=== PATIENT | male | born 1945 | race Caucasian/White ===

== ENCOUNTER 2016-10-09 08:50 | Emergency (ER) | payer MEDICARE, MEDICAID ==
[2016-10-09] MEDS ORDERED: Albuterol/Ipratropium Neb 3 ML NEB NEB ONE (09:00)
[2016-10-09] MEDS ORDERED: METHYLPREDNISOLONE 125 MG/2 ML VIAL IV ONE (09:00)
[2016-10-09 09:01] VITALS: TEMP 99; BMI 27.0
--- NOTE | 2016-10-09 09:03 | EDPRACDOC ---
- General Information Stated Complaint: RESPIRATORY Time Seen by Provider: 10/09/16 08:59 Home Medications: Home Medications Amlodipine [Norvasc] 10 mg PO DAILY 08/31/16 Atorvastatin Calcium [Lipitor] 10 mg PO QHS 08/31/16 Clopidogrel Bisulfate [Plavix] 75 mg PO DAILY 08/31/16 Diazepam [Valium] 5 mg PO DAILY PRN 08/31/16 Ipratropium/Albuterol Sulfate [Combivent Respimat Inhal [place]] 1 puff INH QID Levothyroxine Sodium [Levo-T] 25 mcg PO DAILY 08/31/16 Metoprolol Tartrate 25 mg PO BID #60 tablet 08/31/16 Mirtazapine 7.5 mg PO QHS 08/31/16 Ranitidine [Zantac] 150 mg PO BID 08/31/16 Tamsulosin HCl 0.4 mg PO BID 08/31/16 Tramadol HCl [Ultram] 50 mg PO BID PRN 08/31/16 hydrALAZINE (Cardiovascular) [Apresoline] 10 mg PO TID 08/31/16 Azithromycin [Zithromax] 250 mg PO DAILY #6 tablet 10/09/16 Prednisone [Deltasone, Orasone] 20 mg PO DAILY #12 tab 10/09/16 Allergies/Adverse Reactions: Allergies Allergy/AdvReac Type Severity Reaction Status Date / Time amitriptyline [From Elavil] Allergy Hives* Verified 08/31/16 15:34 carbamazepine [From Tegretol] Allergy See Verified 08/31/16 15:34 Comments Penicillins Allergy Hives* Verified 08/31/16 15:34 - History of Present Illness HPI: SEVERAL DAYS A COUGH COLD CONGESTION. DIFFICULTY BREATHING WHEEZING NOT RESPONDING TO HIS COMBIVENT. FAMILY MEMBERS AT THE EXACT SAME THING. NO ALLEVIATING OR AGGRAVATING FACTORS. LOW-GRADE FEVER AT HOME. ED Past Medical History - History Reviewed Yes Nurses notes reviewed and agree except as marked - Patient Medical History Cardiac History: Reports: Hypertension, Hypercholesterolemia Respiratory History: Reports: COPD GI/ History: Reports: Gastroesophageal Reflux Psychological History: Denies: Depression Systemic History: Reports: Cancer (Skin), Diabetes - Social Medical History Smoking Status: Never smoker ETOH: None Substance Abuse: None Lives With: Family Lives In: Home EDM Review of Systems - Review of Systems ROS Negative Except as Marked: Yes All systems reviewed and were negative except as marked - Physical Exam Constitutional: Alert (Awake), Distress (MILD RESPIRATORY DISTRESS) Oriented to: Time, Person, Place Last recorded Vital Signs: Oxygen Pulse Oxygen Saturation O2 Device Oxygen Flow Rate Fraction of Inspired Oxygen ( FIO2) - HEENT Head: Normal ( normocephalic) Eye Exam: Normal (PERRL, EOMI, Sclera white) Oropharynx: Normal (Pharynx:Moist without exudate,Gums-no swelling) Tympanic Membrane: Normal ENT EAC: Normal TMJ: Normal Nose: No Symptoms Reported (septum midline) Neck: Normal (FROM, trachea at midline). negative: Edema - Respiratory/Cardiovascular Respiratory: Rhonchi, Tachypnea, Wheezes, Other (ABLE TO SPEAK IN ABBREVIATEDL SENTENCES.). negative: Rales Cardiovascular: Tachycardia - GI Auscultation: Normal (NABS) Palpation: Normal (Soft,No rebound or guarding, non distended) Tenderness: Non tender Benavidez's Sign: Negative - Musculoskeletal Back: Normal (Non-Tender) Extremities: Normal (Normal tone, Pulses 2+ No cyanosis or edema, FROM). negative: Pedal Edema - Integumentary Skin: Normal, Warm, Dry Lymphatics: Normal (no adenopathy) - Neurologic Memory Impaired: Normal Motor Function: Normal (Normal tone, Pulses 2+ No cyanosis or edema, FROM) Cranial Nerve: Normal (CN II-X11 intact sensation, strength 5/5) Cerebellar: Normal Mood Description: Normal Perception: Normal ED SOB MDM - Differential Diagnosis Differential Diagnosis: Heart Failure, Pnuemonia, Respiratory Failure, Respiratory Insufficiency - Re-evaluation Re-evaluation 3 Re-evaluation Time: 11:23 (MILD TEMPORARY DESAT WITH AMBULATION. NO HYPOXIA, NO RESPIRATORY DISTRESS, NO SIGNIF IN WOB.) - Results Result Diagrams: 10/09/16 09:00 10/09/16 09:00 - EKG EKG #1 EKG Time: 08:58 -: Yes EKG interpreted by me Rate: bpm: 90 [place]: Normal Rhythm: NSR Block: None Hypertrophy: None ST: Normal - Diagnostic Imaging Chest Image interpreted by: Radiologist Diagnostic Imaging Comments: Patient Name: MELISSA ROBISON LOC: ED : 1945 AGE: 71 Order Date:10/09/16 Date of Service: Report # [id number] Ord Physician: Qiana Alas MD Exam # [id number] Emergency Physician: Qiana Alas MD Exam(s): [id number] RAD/DG CHEST 2V CLINICAL DATA: Shortness of breath EXAM: CHEST 2 VIEW COMPARISON: Chest x-ray dated 08/31/2016. FINDINGS: Cardiomediastinal silhouette is normal in size and configuration. Lungs are clear. Lung volumes are slightly prominent suggesting some degree of COPD. No evidence of pneumonia. No pleural effusion. No pneumothorax. Osseous and soft tissue structures about the chest are unremarkable. IMPRESSION: 1. Lungs at least mildly hyperexpanded suggesting COPD. 2. No acute findings. No evidence of pneumonia. No evidence of volume overload/CHF. Electronically Signed By: Prashanth Dominguez M.D. On: 10/09/2016 09:34 Electronically Signed By: Prashanth Dominguez MD Electronically Signed Date/Time: 936 Dictate Date/Time: 10/09/16931 Technologist: Teresa Luo Transcribed By: Steven Transcribed Date/Time: 10/09/16 0934 - Departure Disposition: Home Condition: Stable Final Diagnosis: Acute exacerbation of chronic obstructive airways disease, Acute bronchitis Chronic kidney disease (CKD) Qualifiers: Chronic kidney disease stage: unspecified stage Qualified Code(s): N18.9 - Chronic kidney disease, unspecified Instructions: COPD (Chronic Obstructive Pulmonary Disease) (ED), Acute Bronchitis (ED) Education/Counseling Given To: Patient Education/Counseling Given Regarding: Diagnosis, Treatment, Prognosis Referrals: Myles Gonsalves MD [Primary Care Provider] - One Week Prescriptions: New Azithromycin [Zithromax] 250 mg PO DAILY #6 tablet Prednisone [Deltasone, Orasone] 20 mg PO DAILY #12 tab No Action Tramadol HCl [Ultram] 50 mg PO BID PRN PRN Reason: Pain Tamsulosin HCl 0.4 mg PO BID Mirtazapine 7.5 mg PO QHS Ipratropium/Albuterol Sulfate [Combivent Respimat Inhal [place]] 1 puff INH QID hydrALAZINE (Cardiovascular) [Apresoline] 10 mg PO TID Ranitidine [Zantac] 150 mg PO BID Clopidogrel Bisulfate [Plavix] 75 mg PO DAILY Atorvastatin Calcium [Lipitor] 10 mg PO QHS Amlodipine [Norvasc] 10 mg PO DAILY Diazepam [Valium] 5 mg PO DAILY PRN PRN Reason: Anxiety Levothyroxine Sodium [Levo-T] 25 mcg PO DAILY Metoprolol Tartrate 25 mg PO BID #60 tablet
[2016-10-09 09:32] LABS: AUTOMATED BASOPHIL 0.5 % (0-2); AUTOMATED EOSINOPHIL 0.6 % (0-5); AUTOMATED LYMPH 5.5 % (17-44); AUTOMATED MONOCYTE 5.3 % (3-10); AUTOMATED NEUTROPHIL 88.1 % (45-76); MPV 7.4 fL (7.4-10.4)
--- NOTE | 2016-10-09 09:36 | DIRPT ---
CLINICAL DATA: Shortness of breath EXAM: CHEST 2 VIEW COMPARISON: Chest x-ray dated 08/31/2016. FINDINGS: Cardiomediastinal silhouette is normal in size and configuration. Lungs are clear. Lung volumes are slightly prominent suggesting some degree of COPD. No evidence of pneumonia. No pleural effusion. No pneumothorax. Osseous and soft tissue structures about the chest are unremarkable. IMPRESSION: 1. Lungs at least mildly hyperexpanded suggesting COPD. 2. No acute findings. No evidence of pneumonia. No evidence of volume overload/CHF. Electronically Signed By: Prashanth Dominguez M.D. On: 10/09/2016 09:34
[2016-10-09 09:46] LABS: BLOOD UREA NITROGEN 31 MG/DL (9-20); CALC CORRECTED 8.2 MG/DL (8.4-10.2); CALCIUM 7.6 MG/DL (8.4-10.2); CALCULATED OSMOLALITY 277 MOs/Kg (270-290); CHLORIDE 109 mEq/L (98-107); GLUCOSE 199 MG/DL (70-99); SODIUM LEVEL 137 mEq/L (137-146); TOTAL PROTEIN 6.4 G/DL (6.3-8.2)
[2016-10-09 10:05] LABS: CPK TOTAL WITH POSSIBLE MB 64 IU/L (55-170)
--- NOTE | 2016-10-09 10:08 | EDPRACDOC ---
- General Information Chief Complaint: Dyspnea/Resp distress Stated Complaint: RESPIRATORY Time Seen by Provider: 10/09/16 08:59 Information Source: Patient Home Medications: Home Medications Amlodipine [Norvasc] 10 mg PO DAILY 08/31/16 Atorvastatin Calcium [Lipitor] 10 mg PO QHS 08/31/16 Clopidogrel Bisulfate [Plavix] 75 mg PO DAILY 08/31/16 Diazepam [Valium] 5 mg PO DAILY PRN 08/31/16 Ipratropium/Albuterol Sulfate [Combivent Respimat Inhal [place]] 1 puff INH QID Levothyroxine Sodium [Levo-T] 25 mcg PO DAILY 08/31/16 Metoprolol Tartrate 25 mg PO BID #60 tablet 08/31/16 Mirtazapine 7.5 mg PO QHS 08/31/16 Ranitidine [Zantac] 150 mg PO BID 08/31/16 Tamsulosin HCl 0.4 mg PO BID 08/31/16 Tramadol HCl [Ultram] 50 mg PO BID PRN 08/31/16 hydrALAZINE (Cardiovascular) [Apresoline] 10 mg PO TID 08/31/16 Albuterol Sulfate [Proair Hfa] 2 puff INH Q4 PRN #1 inhaler 10/09/16 Azithromycin [Zithromax] 250 mg PO DAILY #6 tablet 10/09/16 Prednisone [Deltasone, Orasone] 20 mg PO DAILY #12 tab 10/09/16 Allergies/Adverse Reactions: Allergies Allergy/AdvReac Type Severity Reaction Status Date / Time amitriptyline [From Elavil] Allergy Hives* Verified 08/31/16 15:34 carbamazepine [From Tegretol] Allergy See Verified 08/31/16 15:34 Comments Penicillins Allergy Hives* Verified 08/31/16 15:34 - History of Present Illness Shortness of Breath: Moderate Relevant History: Reports: COPD Rhinorrhea: Reports: Clear SOB Worsens with: Reports: Exertion, Movement, Coughing SOB Improves with: Reports: Inhaler, Rest Associated Signs and symptoms: Reports: Cough, Fever, Nasal Symptoms. 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 (Medication/ Albuterol x 1 Dose/Time) ED Past Medical History - History Reviewed Yes Nurses notes reviewed and agree except as marked - Patient Medical History Cardiac History: Reports: Hypertension, Hypercholesterolemia Respiratory History: Reports: COPD GI/ History: Reports: Gastroesophageal Reflux Psychological History: Denies: Depression Systemic History: Reports: Cancer (Skin), Diabetes - Social Medical History Smoking Status: Never smoker ETOH: None Substance Abuse: None Lives With: Family Lives In: Home EDM Review of Systems - Review of Systems ROS Negative Except as Marked: Yes All systems reviewed and were negative except as marked - Physical Exam Constitutional: Alert (Awake), Distress (MILD RESPIRATORY DISTRESS) Oriented to: Time, Person, Place Last recorded Vital Signs: Last Vital Signs Temp 99 F 10/09/16 08:53 Pulse 96 10/09/16 08:53 Resp 22 10/09/16 09:31 BP 146/70 10/09/16 08:53 Pulse Ox 93 10/09/16 08:53 Oxygen Pulse Oxygen Saturation 93 O2 Device Room Air Oxygen Flow Rate Fraction of Inspired Oxygen ( FIO2) - HEENT Head: Normal ( normocephalic) Eye Exam: Normal (PERRL, EOMI, Sclera white) Oropharynx: Normal (Pharynx:Moist without exudate,Gums-no swelling) Tympanic Membrane: Normal ENT EAC: Normal TMJ: Normal Nose: No Symptoms Reported (septum midline) - Respiratory/Cardiovascular Respiratory: Rhonchi, Tachypnea, Wheezes, Other (ABLE TO SPEAK IN ABBREVIATEDL SENTENCES.). negative: Rales Cardiovascular: Tachycardia - GI Auscultation: Normal (NABS) Palpation: Normal (Soft,No rebound or guarding, non distended) Tenderness: Non tender Benavidez's Sign: Negative - Musculoskeletal Back: Normal (Non-Tender) Extremities: Normal (Normal tone, Pulses 2+ No cyanosis or edema, FROM). negative: Pedal Edema - Integumentary Skin: Normal, Warm, Dry Lymphatics: Normal (no adenopathy) - Neurologic Memory Impaired: Normal Motor Function: Normal (Normal tone, Pulses 2+ No cyanosis or edema, FROM) Cranial Nerve: Normal (CN II-X11 intact sensation, strength 5/5) Cerebellar: Normal Mood Description: Normal Perception: Normal ED SOB MDM - Re-evaluation Re-evaluation 1 Re-evaluation Time: 10:08 (IMPROVED SIGNIFICANTLY) - Results Result Diagrams: 10/09/16 09:00 10/09/16 09:00 Results: WBC 11.8 xk/uL (3.8-10.8) H 10/09/16 09:00 RBC 4.40 xM/uL (4.70-6.10) L 10/09/16 09:00 Hgb 10.3 g/dL (14.0-18.0) L 10/09/16 09:00 Hct 32.7 % (42-52) L 10/09/16 09:00 MCV 74 fL (80-94) L 10/09/16 09:00 MCH 23.4 pg (27-32) L 10/09/16 09:00 MCHC 31.5 g/dl (33-36) L 10/09/16 09:00 RDW 16.7 % (11.5-14.5) H 10/09/16 09:00 Plt Count 303 xk/uL (130-400) 10/09/16 09:00 MPV 7.4 fL (7.4-10.4) 10/09/16 09:00 Sodium 137 mEq/L (137-146) 10/09/16 09:00 Potassium 4.6 mEq/L (3.5-5.1) 10/09/16 09:00 Chloride 109 mEq/L (98-107) H 10/09/16 09:00 Carbon Dioxide 17 mMOL/L (22-33) L 10/09/16 09:00 Anion Gap 16 mEq/L (8-16) 10/09/16 09:00 BUN 31 MG/DL (9-20) H 10/09/16 09:00 Creatinine 2.10 MG/DL (0.66-1.25) H 10/09/16 09:00 Estimated GFR (MDRD) 31 mL/min (>=60) L 10/09/16 09:00 Glucose 199 MG/DL (70-99) H 10/09/16 09:00 Calculated Osmolality 277 MOs/Kg (270-290) 10/09/16 09:00 Lactic Acid 2.1 mEq/L (0.7-2.1) 10/09/16 09:00 Calcium 7.6 MG/DL (8.4-10.2) L 10/09/16 09:00 Corrected Calcium 8.2 MG/DL (8.4-10.2) L 10/09/16 09:00 Total Bilirubin 0.3 MG/DL (0.2-1.3) 10/09/16 09:00 AST 26 IU/L (17-59) 10/09/16 09:00 ALT 36 IU/L (21-72) 10/09/16 09:00 Alkaline Phosphatase 98 IU/L (50-160) 10/09/16 09:00 Troponin I 0.03 ng/mL (<.04) 10/09/16 09:00 [id number]-Txdhkejactm Pept 4230 pg/mL (0-900) H 10/09/16 09:00 Total Protein 6.4 G/DL (6.3-8.2) 10/09/16 09:00 Albumin 3.4 G/DL (3.5-5.0) L 10/09/16 09:00 Lab Results 10/09/16 10/09/16 10/09/16 09:00 09:00 09:00 WBC 11.8 H RBC 4.40 L Hgb 10.3 L Hct 32.7 L MCV 74 L MCH 23.4 L MCHC 31.5 L RDW 16.7 H Plt Count 303 MPV 7.4 Sodium Potassium Chloride Carbon Dioxide Anion Gap BUN Creatinine Estimated GFR (MDRD) Glucose Calculated Osmolality Lactic Acid 2.1 Calcium Corrected Calcium Total Bilirubin AST ALT Alkaline Phosphatase Troponin I Ozq-[id number]-Lakwshmzhog Pept 4230 H Total Protein Albumin 10/09/16 09:00 WBC RBC Hgb Hct MCV MCH MCHC RDW Plt Count MPV Sodium 137 Potassium 4.6 Chloride 109 H Carbon Dioxide 17 L Anion Gap 16 BUN 31 H Creatinine 2.10 H Estimated GFR (MDRD) 31 L Glucose 199 H Calculated Osmolality 277 Lactic Acid Calcium 7.6 L Corrected Calcium 8.2 L Total Bilirubin 0.3 AST 26 ALT 36 Alkaline Phosphatase 98 Troponin I 0.03 Ekn-U-Ulxqcmeyftd Pept Total Protein 6.4 Albumin 3.4 L - Departure Condition: Stable Final Diagnosis: Acute exacerbation of chronic obstructive airways disease, Acute bronchitis Chronic kidney disease (CKD) Qualifiers: Chronic kidney disease stage: unspecified stage Qualified Code(s): N18.9 - Chronic kidney disease, unspecified Instructions: Prednisone (By mouth), Azithromycin (By mouth), Acute Bronchitis (ED), COPD (Chronic Obstructive Pulmonary Disease) (ED) Education/Counseling Given To: Patient Education/Counseling Given Regarding: Diagnosis, Treatment, Prognosis Referrals: Myles Gonsalves MD [Primary Care Provider] - One Week Prescriptions: New Azithromycin [Zithromax] 250 mg PO DAILY #6 tablet Prednisone [Deltasone, Orasone] 20 mg PO DAILY #12 tab Albuterol Sulfate [Proair Hfa] 2 puff INH Q4 PRN #1 inhaler PRN Reason: WHEEZE OR COUGH No Action Tramadol HCl [Ultram] 50 mg PO BID PRN PRN Reason: Pain Tamsulosin HCl 0.4 mg PO BID Mirtazapine 7.5 mg PO QHS Ipratropium/Albuterol Sulfate [Combivent Respimat Inhal [place]] 1 puff INH QID hydrALAZINE (Cardiovascular) [Apresoline] 10 mg PO TID Ranitidine [Zantac] 150 mg PO BID Clopidogrel Bisulfate [Plavix] 75 mg PO DAILY Atorvastatin Calcium [Lipitor] 10 mg PO QHS Amlodipine [Norvasc] 10 mg PO DAILY Diazepam [Valium] 5 mg PO DAILY PRN PRN Reason: Anxiety Levothyroxine Sodium [Levo-T] 25 mcg PO DAILY Metoprolol Tartrate 25 mg PO BID #60 tablet
[2016-10-09 10:20] VITALS: BP 149/70; PULSE 84
[2016-10-09 11:18] LABS: RBC/URINE 0-2 (0-2); WBC/URINE 0-2 (0-2)
[2016-10-09 11:22] LABS: LEUKOCYTES/URINE NEG (NEGATIVE); NITRITE/URINE NEG (NEGATIVE); URINE OCCULT BLOOD NEG (NEG/TRACE)
== END 2016-10-09 11:53 | disposition home or self-care (01) ==
LOC: ED 08:50
DX: J44.0 Chronic obstructive pulmonary disease with (acute) lower respiratory infection (principal); J20.9 Acute bronchitis, unspecified; J44.1 Chronic obstructive pulmonary disease with (acute) exacerbation; N18.9 Chronic kidney disease, unspecified
CPT/HCPCS: 36415; 71020; 80053; 81001; 82550; 83605; 83880; 84484; 85025; 87040; 87086; 93005; 94640; 96374; 99283; J2930; J7620